=== PATIENT | male | born 1990 | race Caucasian/White ===

== ENCOUNTER 2017-02-22 08:18 | Emergency (ER) | payer BC ==
[~2017-02-22] VITALS: Ht 172.7 cm; Wt 67.9 kg
[2017-02-22 08:20] VITALS: BP 126/74
== END 2017-02-22 09:13 | disposition home or self-care (01) ==
LOC: ED 08:43
DX: K04.7 Periapical abscess without sinus (principal)
CPT/HCPCS: 99281; 99283